=== PATIENT | female | born 1975 | race Caucasian/White ===

== ENCOUNTER 2016-11-16 18:40 | Emergency (ER) | payer MEDICAID ==
[2016-11-16 19:37] VITALS: BP 135/94
[2016-11-16] MEDS ORDERED: Ondansetron 4 MG/2 ML SDV IVPUSH ONE (20:41)
[2016-11-16] MEDS ORDERED: HYDROmorphone 1 MG/ML Syringe IVPUSH ONE (20:42)
[2016-11-16] MEDS ORDERED: diphenhydrAMINE 50 MG/ML SDV IVPUSH ONE (20:42)
[2016-11-16] MEDS ORDERED: Sodium Chloride 0.9% 1,000 ML IV SCH (20:45)
--- NOTE | 2016-11-16 21:29 | EDM.PDOC ---
[id number] 4d PAIN ON LT SIDE Time Seen by Provider: 11/16/16 19:55 Source: Reports: Patient, Family History Limitations: Reports: No limitations - History of Present Illness INITIAL COMMENTS - FREE TEXT/NARRATIVE: 41-year-old female with persistent abdominal pain for the past several weeks now worse the last 2 days with nausea and vomiting. She has a history of recurring pancreatitis and is concerned she may have an acute flare up. Her pain is mostly on the right side however which is unusual. No fevers or chills. She usually receives IV Benadryl, Dilaudid, and Zofran when this occurs. Location: [facility] Quality: Reports: ache, cramping Severity: moderate Context: Denies: sick contact, bad/questionable food Associated Symptoms (-Female): Reports: nausea/vomiting. Denies: diarrhea - Related Data Allergies/ADRs: Allergies Allergy/AdvReac Type Severity Reaction Status Date / Time codeine Allergy Rash Verified 07/03/13 15:51 metoclopramide HCl Allergy Cannot Verified 07/03/13 15:51 [From Reglan] Remember morphine Allergy Hives Verified 07/03/13 15:51 prochlorperazine edisylate Allergy Cannot Verified 07/03/13 15:51 [From Compazine] Remember prochlorperazine maleate Allergy Cannot Verified 07/03/13 15:51 [From Compazine] Remember promethazine HCl Allergy Cannot Verified 07/03/13 15:51 [From Phenergan] Remember Home Meds: Home Meds Ondansetron [Zofran] 4 mg PO Q6H PRN 07/03/13 [History] Doxepin HCl [Doxepin] 30 mg PO BEDTIME PRN 11/16/16 [History] Omeprazole 40 mg PO DAILY 11/16/16 [History] Venlafaxine [Effexor] 150 mg PO DAILY 11/16/16 [History] Ziprasidone HCl [Geodon] 60 mg PO BEDTIME 11/16/16 [History] cloNIDine [Catapres] 0.2 mg PO BID PRN 11/16/16 [History] Past Medical History Gastrointestinal History: Reports: Inflammatory bowel disease, Pancreatitis Psychiatric History: Reports: PTSD - Past Surgical History HEENT Surgical History: Reports: Tonsillectomy GI Surgical History: Reports: Abdominal paracentesis, Cholecystectomy Female Surgical History: Reports: section Social & Family History - Tobacco Use Smoking Status *Q: Current Every Day Smoker Years of Tobacco use: 30 Packs/Tins Daily: 1 ED ROS GENERAL - Review of Systems Review Of Systems: See Below Constitutional: Reports: malaise. Denies: fever, chills HEENT: Reports: No symptoms Respiratory: Denies: Shortness of Breath Cardiovascular: Denies: Chest pain GI/Abdominal: Reports: Abdominal pain, Nausea, Vomiting. Denies: Diarrhea : Reports: no symptoms Skin: Reports: no symptoms Psychiatric: Reports: Anxiety ED EXAM, GI/ABD - Physical Exam Exam: See Below Exam Limited By: No limitations General Appearance: alert, mild distress (Appears uncomfortable) Respiratory/Chest: no respiratory distress, lungs clear Cardiovascular: regular rate, rhythm GI/Abdominal: soft, tenderness (Does react to some tenderness with palpation of the upper abdomen, no rebound) Extremities: No: pedal edema Neurological: alert, oriented Skin Exam: Warm, Dry. No: Jaundice Course - Vital Signs Last Recorded V/S: Last Vital Signs Temp 98.0 F 11/16/16 20:20 Pulse 111 H 11/16/16 20:20 Resp 18 11/16/16 20:20 BP 135/94 H 11/16/16 20:20 Pulse Ox 98 11/16/16 20:20 - Orders/Labs/Meds Labs: Laboratory Tests 11/16/16 11/16/16 Range/Units 20:52 20:52 WBC 17.9 H (4.5-11.0) K/uL RBC 4.42 (3.30-5.50) M/uL Hgb 11.6 L (12.0-15.0) g/dL Hct 36.4 (36.0-48.0) % MCV 82 (80-98) fL MCH 26 L (27-31) pg MCHC 32 (32-36) % Plt Count 412 H (150-400) K/uL Neut % (Auto) 69 H (36-66) % Lymph % (Auto) 20 L (24-44) % [place] % (Auto) 8 H (2-6) % Eos % (Auto) 3 (2-4) % Baso % (Auto) 1 (0-1) % Sodium 138 L (140-148) mmol/L Potassium 3.9 (3.6-5.2) mmol/L Chloride 102 (100-108) mmol/L Carbon Dioxide 26 (21-32) mmol/L Anion Gap 13.9 (5.0-14.0) mmol/L BUN 4 L D (7-18) mg/dL Creatinine 0.7 (0.6-1.0) mg/dL Est Cr Clr Drug Dosing 101.81 mL/min Estimated GFR (MDRD) > 60 (>60) Glucose 154 H (74-106) mg/dL Calcium 7.9 L (8.5-10.1) mg/dL Total Bilirubin 0.4 (0.2-1.0) mg/dL AST 17 (15-37) U/L ALT 28 (12-78) U/L Alkaline Phosphatase 130 H (46-116) U/L Total Protein 7.6 (6.4-8.2) g/dL Albumin 3.2 L (3.4-5.0) g/dL Globulin 4.4 H (2.3-3.5) g/dL Albumin/Globulin Ratio 0.7 L (1.2-2.2) Amylase 33 (25-115) U/L Lipase 207 (73-393) U/L Meds: Medications Discontinued Medications Generic Name Dose Route Start Last Admin Trade Name Juan Carlosq PRN Reason Stop Dose Admin Diphenhydramine HCl 25 mg 11/16/16 20:42 11/16/16 20:51 Benadryl IVPUSH 11/16/16 20:43 25 mg ONETIME ONE Administration Hydromorphone HCl 1 mg 11/16/16 20:42 11/16/16 20:51 Dilaudid IVPUSH 11/16/16 20:43 1 mg ONETIME ONE Administration Hydromorphone HCl 0.5 mg 11/16/16 21:40 11/16/16 22:05 Dilaudid IVPUSH 11/16/16 21:41 0.5 mg ONETIME ONE Administration Sodium Chloride 1,000 mls @ 1,000 mls/hr 11/16/16 20:45 11/16/16 20:51 Normal Saline IV 1,000 mls/hr ASDIRECTED JOHN Administration Ondansetron HCl 4 mg 11/16/16 20:41 11/16/16 20:50 Zofran IVPUSH 11/16/16 20:42 4 mg ONETIME ONE Administration - Re-Assessments/Exams Free Text/Narrative Re-Assessment/Exam: 11/16/16 21:28 1 L of normal saline was given, CBC CMP amylase and lipase were obtained. Patient did receive 25 mg of IV Benadryl, 1 mg of IV Dilaudid, and 4 mg of IV Zofran. Amylase and lipase returned normal. 11/16/16 21:42 White count returned 17,000 but her electrolytes are normal, amylase and lipase were normal. She had no additional emesis but continued to have some pain and was asking for an additional dose of Dilaudid. We discussed possibly getting a CT scan but she has had many up in [facility] and I don't think it would be beneficial. She was given an additional 0.5 mg of Dilaudid IV and encouraged to follow up with Dr. Mack this week Departure - Departure Time of Disposition: 22:07 Disposition: Home, Self-Care 01 Condition: good Clinical Impression: Abdominal pain Qualifiers: Abdominal location: right upper quadrant Qualified Code(s): R10.11 - Right upper quadrant pain Vomiting Qualifiers: Vomiting Intractability: non-intractable Nausea presence: with nausea Instructions: Abdominal Pain, Adult, [id number], Nausea and Vomiting, Adult Referrals: Genaro Mack Sr, MD [Primary Care Provider] - Forms: ED Department Discharge Care Plan Goals: Continue your regular medications, advance diet as tolerated and discuss your progress and any further evaluation with Dr. Mack this week.
[2016-11-16] MEDS ORDERED: HYDROmorphone 0.5 MG/0.5 ML Syringe IVPUSH ONE (21:40)
== END 2016-11-16 22:07 | disposition home or self-care (01) ==
LOC: JP.ED 18:40
DX: R10.11 Right upper quadrant pain (principal); R11.2 Nausea with vomiting, unspecified; F17.210 Nicotine dependence, cigarettes, uncomplicated; Z79.899 Other long term (current) drug therapy; Z90.49 Acquired absence of other specified parts of digestive tract; Z98.890 Other specified postprocedural states; Z88.5 Allergy status to narcotic agent; Z88.8 Allergy status to other drugs, medicaments and biological substances
CPT/HCPCS: 36415; 80053; 82150; 83690; 85025; 96361; 96374; 96375; 96376; 99284; J1170; J1200; J2405; J7040

== ENCOUNTER 2019-08-08 13:41 | Emergency (ER) | payer MEDICAID ==
[2019-08-08 14:17] VITALS: BP 163/94; PULSE 113
[2019-08-08] MEDS ORDERED: Lactated Ringers 1,000 ML IV SCH (14:30)
[2019-08-08] MEDS ORDERED: Sodium Chloride 0.9% 10 ML Syringe FLUSH PRN (14:30)
[2019-08-08] MEDS ORDERED: fentaNYL 100 MCG/2 ML SDV IVPUSH ONE ×3 (14:36→18:11)
[2019-08-08] MEDS ORDERED: Ondansetron 4 MG/2 ML SDV IVPUSH ONE (14:36)
[2019-08-08] MEDS ORDERED: LORazepam 2 MG/ML SDV IVPUSH ONE (14:40)
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
[2019-08-08] MEDS ORDERED: Lactated Ringers 1,000 ML IV ONE (16:36)
== END 2019-08-08 18:33 | disposition home or self-care (01) ==
LOC: JP.ED 13:41
DX: R10.11 Right upper quadrant pain (principal); F41.9 Anxiety disorder, unspecified; F32.9 Major depressive disorder, single episode, unspecified; J44.9 Chronic obstructive pulmonary disease, unspecified; Z90.49 Acquired absence of other specified parts of digestive tract; F17.210 Nicotine dependence, cigarettes, uncomplicated; Z88.5 Allergy status to narcotic agent; Z88.8 Allergy status to other drugs, medicaments and biological substances; Z79.899 Other long term (current) drug therapy
CPT/HCPCS: 36415; 80053; 80305; 81001; 83605; 83690; 85025; 85610; 96361; 96374; 96375; 96376; 99284; J2060; J2405; J3010; J7120

== ENCOUNTER 2021-03-23 02:35 | Emergency (ER) | payer MEDICAID ==
[2021-03-23 03:13] VITALS: BP 132/80; PULSE 95
[2021-03-23] MEDS ORDERED: HYDROmorphone 0.5 MG/0.5 ML Syringe IVPUSH ONE (03:31)
[2021-03-23] MEDS ORDERED: Ondansetron 4 MG/2 ML SDV IVPUSH ONE (03:31)
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
[2021-03-23] MEDS ORDERED: Lactated Ringers 1,000 ML IV SCH (03:45)
== END 2021-03-23 03:47 | disposition left against medical advice (07) ==
LOC: JP.ED 02:35
DX: R10.12 Left upper quadrant pain (principal); I48.91 Unspecified atrial fibrillation; J44.9 Chronic obstructive pulmonary disease, unspecified; Z72.0 Tobacco use; Z88.8 Allergy status to other drugs, medicaments and biological substances; Z88.5 Allergy status to narcotic agent; Z88.6 Allergy status to analgesic agent; Z79.899 Other long term (current) drug therapy
CPT/HCPCS: 80305-QW; 81001; 99284

== ENCOUNTER 2023-02-20 07:47 | Inpatient (IN) | payer MEDICAID ==
[2023-02-20] MEDS ORDERED: Sodium Chloride 0.9% 1,000 ML IV STA (07:51)
[2023-02-20] MEDS ORDERED: Sodium Chloride 0.9% 10 ML Syringe FLUSH PRN (07:51)
[2023-02-20] MEDS ORDERED: Ondansetron 4 MG/2 ML SDV IVPUSH ONE (07:53)
[2023-02-20] MEDS ORDERED: fentaNYL 100 MCG/2 ML SDV IVPUSH ONE ×2 (07:53→11:25)
[2023-02-20 07:58] LABS: BASOPHILS ABSOLUTE AUTO 0.15 K/uL (0.00-0.10); BASOPHILS PERCENT AUTO 2.1 % (0.1-1.3); EOSINOPHILS ABSOLUTE AUTO 0.35 K/uL (0.00-0.40); EOSINOPHILS PERCENT AUTO 4.8 % (0.0-5.4); HEMATOCRIT 37.2 % (34.3-46.0); HEMOGLOBIN 12.5 g/dL (11.2-15.5); IMMATURE GRAN ABSOLUTE AUTO 0.03 K/uL (0.00-0.23); IMMATURE GRAN PERCENT AUTO 0.4 % (0.0-0.7); LYMPHOCYTES ABSOLUTE AUTO 1.93 K/uL (0.8-3.3); LYMPHOCYTES PERCENT AUTO 26.5 % (11.4-47.7); MEAN CORPUSCULAR HEMOGLOBIN 30.9 pg (31.6-35.5); MEAN CORPUSCULAR HGB CONC 33.6 g/dL (31.6-35.5); MEAN CORPUSCULAR VOLUME 91.9 fL (81.4-99.0); MONOCYTES PERCENT AUTO 12.4 % (3.3-12.6); NEUTROPHILS ABSOLUTE AUTO 3.92 K/uL (1.0-7.6); NEUTROPHILS PERCENT AUTO 53.8 % (40.0-78.1); PLATELET COUNT,PLT 362 K/uL (130-375); RED BLOOD CELL COUNT 4.05 M/uL (3.77-5.24); WHITE BLOOD CELL COUNT,WBC 7.3 K/uL (3.2-11.0)
[2023-02-20] MEDS ORDERED: Iopamidol 612 MG/ML 100 ML Bottle IV ONE (08:18)
[2023-02-20 08:22] LABS: A/G RATIO 0.9 (1.2-2.2); ALANINE AMINOTRANSFERASE,ALT 45 U/L (12-78); ALBUMIN 3.2 g/dL (3.4-5.0); ALKALINE PHOSPHATASE 98 U/L (46-116); ASPARTATE AMNIOTRANSFERASE,AST 30 U/L (15-37); BILIRUBIN TOTAL 0.4 mg/dL (0.2-1.0); BLOOD UREA NITROGEN,BUN 7 mg/dL (7-18); CALCIUM 8.7 mg/dL (8.5-10.1); CARBON DIOXIDE,CO2 25 mmol/L (21-32); CHLORIDE,CL 104 mmol/L (100-108); CREATININE 0.6 mg/dL (0.6-1.0); EST CRCL DRUG DOSING (CG) 111.51 mL/min; ESTIMATED GFR 111 mL/min (>60); GLUCOSE RANDOM 121 mg/dL (74-106); POTASSIUM,K 3.6 mmol/L (3.6-5.2); PROTEIN TOTAL,TP 6.8 g/dL (6.4-8.2); SODIUM,NA 139 mmol/L (140-148); TROPONIN I HIGH SENSITIVITY 12.4 pg/mL (<=60.3)
[2023-02-20 08:23] LABS: ANION GAP 13.6 mmol/L (5.0-14.0)
[2023-02-20] MEDS ORDERED: Sodium Chloride 0.9% 50 ML IV SCH (08:30)
[2023-02-20 09:20] LABS: APPEARANCE,URINE CLEAR (CLEAR); BILIRUBIN,URINE NEGATIVE (NEGATIVE); COLOR,URINE YELLOW (YELLOW); GLUCOSE,URINE NEGATIVE (NEGATIVE); KETONES,URINE NEGATIVE (NEGATIVE); LEUKOCYTE ESTERASE,URINE NEGATIVE (NEGATIVE); NITRITE,URINE NEGATIVE (NEGATIVE); OCCULT BLOOD,URINE NEGATIVE (NEGATIVE); PROTEIN,URINE NEGATIVE (NEGATIVE); UROBILINOGEN,URINE 0.2 EU/dL (0.2-1.0)
[2023-02-20 09:25] LABS: BACTERIA,URINE RARE; EPITHELIAL CELLS,URINE MODERATE; MUCUS,URINE NOT SEEN; RBC,URINE NOT SEEN (0-5); WBC,URINE NOT SEEN (0-5)
[2023-02-20 09:26] LABS: AMORPHOUS SEDIMENT,URINE RARE
[2023-02-20] MEDS: HYDROmorphone 0.5 MG/0.5 ML Syringe IVPUSH PRN ×4 (14:42→20:59)
[2023-02-20] MEDS ORDERED: Sodium Chloride 0.9% 1,000 ML IV SCH (14:45)
[2023-02-20] MEDS: NS + KCl 20mEq/L 1,000 ML IV SCH ×2 (15:49→23:48)
[2023-02-20] MEDS: Ondansetron 4 MG/2 ML SDV IVPUSH PRN (17:59)
[2023-02-20] MEDS: diphenhydrAMINE 50 MG/ML SDV IVPUSH PRN (20:59)
[2023-02-20] MEDS ORDERED: Nicotine 14 MG/24 Hr Patch TRDERM ONE (23:53)
[2023-02-21] MEDS: HYDROmorphone 0.5 MG/0.5 ML Syringe IVPUSH PRN ×8 (00:10→22:06)
[2023-02-21] MEDS: Ondansetron 4 MG/2 ML SDV IVPUSH PRN ×2 (02:58→08:41)
[2023-02-21 05:16] LABS: CALCIUM 8.1 mg/dL (8.5-10.1); CREATININE 0.5 mg/dL (0.6-1.0); EST CRCL DRUG DOSING (CG) 133.81 mL/min
[2023-02-21] MEDS: NS + KCl 20mEq/L 1,000 ML IV SCH ×3 (08:16→23:50)
[2023-02-21] MEDS: diphenhydrAMINE 50 MG/ML SDV IVPUSH PRN (08:41)
[2023-02-21] MEDS ORDERED: diphenhydrAMINE 50 MG/ML SDV IVPUSH PRN (12:09)
[2023-02-21] MEDS: Ondansetron 4 MG Tab.DIS PO PRN (14:32)
[2023-02-21] MEDS: Enoxaparin 40 MG/0.4 ML Syringe SUBCUT SCH (16:05)
[2023-02-21] MEDS ORDERED: Nicotine 14 MG/24 Hr Patch TRDERM ONE (18:43)
[2023-02-21] MEDS: Acetaminophen 325 MG Tab PO PRN (18:46)
[2023-02-21] MEDS: Prazosin 1 MG Cap PO SCH (21:22)
[2023-02-22] MEDS: Ondansetron 4 MG Tab.DIS PO PRN ×3 (04:14→19:44)
[2023-02-22] MEDS: HYDROmorphone 0.5 MG/0.5 ML Syringe IVPUSH PRN ×2 (04:14→08:45)
[2023-02-22] MEDS: NS + KCl 20mEq/L 1,000 ML IV SCH (07:58)
[2023-02-22] MEDS: HYDROmorphone 2 MG Tab PO PRN ×3 (11:04→20:39)
[2023-02-22] MEDS: Enoxaparin 40 MG/0.4 ML Syringe SUBCUT SCH (15:46)
[2023-02-22] MEDS: Amylase/Lipase/Protease 12,000 Unit Cap.CR PO SCH (17:58)
[2023-02-22] MEDS ORDERED: Pantoprazole 40 MG Tab.CR PO SCH (19:45)
[2023-02-22] MEDS: Prazosin 1 MG Cap PO SCH (20:38)
[2023-02-22] MEDS: Sodium Chloride 0.9% 1,000 ML IV SCH (21:43)
[2023-02-23] MEDS: HYDROmorphone 0.5 MG/0.5 ML Syringe IVPUSH PRN ×8 (01:07→21:24)
[2023-02-23] MEDS: Sodium Chloride 0.9% 1,000 ML IV SCH ×3 (05:23→21:30)
[2023-02-23 05:53] LABS: BASOPHILS ABSOLUTE AUTO 0.08 K/uL (0.00-0.10); BASOPHILS PERCENT AUTO 1.2 % (0.1-1.3); EOSINOPHILS ABSOLUTE AUTO 0.22 K/uL (0.00-0.40); EOSINOPHILS PERCENT AUTO 3.4 % (0.0-5.4); HEMATOCRIT 37.2 % (34.3-46.0); HEMOGLOBIN 12.3 g/dL (11.2-15.5); IMMATURE GRAN PERCENT AUTO 0.3 % (0.0-0.7); LYMPHOCYTES ABSOLUTE AUTO 2.04 K/uL (0.8-3.3); LYMPHOCYTES PERCENT AUTO 31.7 % (11.4-47.7); MEAN CORPUSCULAR HEMOGLOBIN 30.5 pg (31.6-35.5); MEAN CORPUSCULAR HGB CONC 33.1 g/dL (31.6-35.5); MEAN CORPUSCULAR VOLUME 92.3 fL (81.4-99.0); MONOCYTES ABSOLUTE AUTO 0.93 K/uL (0.20-0.90); MONOCYTES PERCENT AUTO 14.5 % (3.3-12.6); NEUTROPHILS ABSOLUTE AUTO 3.14 K/uL (1.0-7.6); NEUTROPHILS PERCENT AUTO 48.9 % (40.0-78.1); PLATELET COUNT,PLT 379 K/uL (130-375); RED BLOOD CELL COUNT 4.03 M/uL (3.77-5.24); WHITE BLOOD CELL COUNT,WBC 6.4 K/uL (3.2-11.0)
[2023-02-23 05:54] LABS: IMMATURE GRAN ABSOLUTE AUTO 0.02 K/uL (0.00-0.23)
[2023-02-23 06:05] LABS: A/G RATIO 0.9 (1.2-2.2); ALANINE AMINOTRANSFERASE,ALT 34 U/L (12-78); ALBUMIN 2.9 g/dL (3.4-5.0); ALKALINE PHOSPHATASE 88 U/L (46-116); ASPARTATE AMNIOTRANSFERASE,AST 35 U/L (15-37); BILIRUBIN TOTAL 0.4 mg/dL (0.2-1.0); BLOOD UREA NITROGEN,BUN 2 mg/dL (7-18); CALCIUM 8.3 mg/dL (8.5-10.1); CARBON DIOXIDE,CO2 27 mmol/L (21-32); CHLORIDE,CL 103 mmol/L (100-108); CREATININE 0.5 mg/dL (0.6-1.0); EST CRCL DRUG DOSING (CG) 133.81 mL/min; ESTIMATED GFR 116 mL/min (>60); GLUCOSE RANDOM 111 mg/dL (74-106); POTASSIUM,K 3.5 mmol/L (3.6-5.2); PROTEIN TOTAL,TP 6.2 g/dL (6.4-8.2); SODIUM,NA 139 mmol/L (140-148)
[2023-02-23 06:12] LABS: ANION GAP 12.5 mmol/L (5.0-14.0)
[2023-02-23] MEDS: Ondansetron 4 MG Tab.DIS PO PRN (07:23)
[2023-02-23] MEDS: Pantoprazole 40 MG Tab.CR PO SCH (09:33)
[2023-02-23] MEDS: Amylase/Lipase/Protease 12,000 Unit Cap.CR PO SCH ×3 (09:37→16:58)
[2023-02-23] MEDS: Ondansetron 4 MG/2 ML SDV IVPUSH PRN ×2 (12:54→21:24)
[2023-02-23] MEDS: Enoxaparin 40 MG/0.4 ML Syringe SUBCUT SCH (15:25)
[2023-02-23] MEDS: diphenhydrAMINE 50 MG/ML SDV IVPUSH PRN (16:12)
[2023-02-23] MEDS: Prazosin 1 MG Cap PO SCH (21:20)
[2023-02-24] MEDS: HYDROmorphone 0.5 MG/0.5 ML Syringe IVPUSH PRN ×7 (00:01→19:10)
[2023-02-24] MEDS: diphenhydrAMINE 50 MG/ML SDV IVPUSH PRN ×3 (00:01→23:26)
[2023-02-24] MEDS: Ondansetron 4 MG/2 ML SDV IVPUSH PRN ×3 (04:56→20:27)
[2023-02-24] MEDS: Sodium Chloride 0.9% 1,000 ML IV SCH (05:04)
[2023-02-24] MEDS: diphenhydrAMINE 25 MG Cap PO PRN ×2 (07:45→14:38)
[2023-02-24] MEDS: Pantoprazole 40 MG Tab.CR PO SCH (07:45)
[2023-02-24] MEDS: Amylase/Lipase/Protease 12,000 Unit Cap.CR PO SCH ×3 (07:45→16:54)
[2023-02-24] MEDS: NS + KCl 20mEq/L 1,000 ML IV SCH ×2 (10:54→19:11)
[2023-02-24] MEDS ORDERED: diphenhydrAMINE 25 MG Cap PO PRN (14:51)
[2023-02-24] MEDS: Enoxaparin 40 MG/0.4 ML Syringe SUBCUT SCH (15:09)
[2023-02-24] MEDS: Prazosin 1 MG Cap PO SCH (20:22)
[2023-02-24] MEDS: Acetaminophen 325 MG Tab PO PRN (23:26)
[2023-02-25] MEDS: HYDROmorphone 0.5 MG/0.5 ML Syringe IVPUSH PRN ×3 (01:32→14:40)
[2023-02-25] MEDS: NS + KCl 20mEq/L 1,000 ML IV SCH ×2 (03:31→11:45)
[2023-02-25 04:50] LABS: CREATININE 0.5 mg/dL (0.6-1.0); EST CRCL DRUG DOSING (CG) 133.45 mL/min; POTASSIUM,K 3.7 mmol/L (3.6-5.2)
[2023-02-25 05:24] LABS: ANION GAP 11.7 mmol/L (5.0-14.0)
[2023-02-25] MEDS: Acetaminophen 325 MG Tab PO PRN ×3 (05:30→14:07)
[2023-02-25] MEDS ORDERED: Pantoprazole 40 MG Vial IVPUSH SCH (08:00)
[2023-02-25] MEDS: Amylase/Lipase/Protease 12,000 Unit Cap.CR PO SCH ×3 (08:24→17:09)
[2023-02-25] MEDS: diphenhydrAMINE 50 MG/ML SDV IVPUSH PRN (10:09)
[2023-02-25] MEDS: Ondansetron 4 MG/2 ML SDV IVPUSH PRN ×2 (10:09→14:07)
[2023-02-25] MEDS: Enoxaparin 40 MG/0.4 ML Syringe SUBCUT SCH (15:37)
[2023-02-25] MEDS ORDERED: Ondansetron 4 MG Tab.DIS PO PRN (15:49)
[2023-02-25] MEDS: Potassium Chloride 20 MEQ Tab.ER PO SCH (17:09)
[2023-02-25] MEDS: Acetaminophen/HYDROcodone 325-5 MG Tab PO PRN (17:25)
[2023-02-25] MEDS: Prazosin 1 MG Cap PO SCH (20:20)
[2023-02-25] MEDS: hydrOXYzine HCl 25 MG Tab PO PRN (20:20)
[2023-02-25] MEDS: cloNIDine 0.1 MG Tab PO PRN (20:20)
[2023-02-26] MEDS: Acetaminophen/HYDROcodone 325-5 MG Tab PO PRN (05:59)
[2023-02-26] MEDS: Pantoprazole 40 MG Tab.CR PO SCH ×2 (06:01→06:30)
[2023-02-26] MEDS: Amylase/Lipase/Protease 12,000 Unit Cap.CR PO SCH ×2 (08:04→11:32)
[2023-02-26] MEDS: Potassium Chloride 20 MEQ Tab.ER PO SCH (08:05)
[2023-02-26] MEDS: cloNIDine 0.1 MG Tab PO PRN (08:08)
[2023-02-26] MEDS: Acetaminophen 325 MG Tab PO PRN (08:09)
[2023-02-26 11:18] VITALS: BP 138/97; PULSE 91
[2023-02-26] MEDS: hydrOXYzine HCl 25 MG Tab PO PRN (11:45)
== END 2023-02-26 12:41 | DRG 440 ==
LOC: JP.ED 07:47 → JP.2SS 12:05
PROVIDERS: ADMIT Internal Medicine; ATTEND Internal Medicine
DX: K85.20 Alcohol induced acute pancreatitis without necrosis or infection (principal); I48.91 Unspecified atrial fibrillation; J44.9 Chronic obstructive pulmonary disease, unspecified; K21.9 Gastro-esophageal reflux disease without esophagitis; Z20.822 Contact with and (suspected) exposure to COVID-19; F17.210 Nicotine dependence, cigarettes, uncomplicated; F32.A Depression, unspecified; I20.9 Angina pectoris, unspecified; F43.10 Post-traumatic stress disorder, unspecified; R63.0 Anorexia; Z68.28 Body mass index [BMI] 28.0-28.9, adult; Z90.49 Acquired absence of other specified parts of digestive tract; Z88.8 Allergy status to other drugs, medicaments and biological substances; Z90.89 Acquired absence of other organs; Z98.890 Other specified postprocedural states
CPT/HCPCS: 36415; 74177; 74177-26; 80048; 80053; 81001; 81025; 82150; 83605; 83690; 84484; 85025; 96374; 96375; 96376; 99285; 99285-25; A9270-GY; C9113; J1170; J1200; J1650; J2405; J3010; J3480; J3490; J7030; Q0162; Q9967; U0002